=== PATIENT | male | born 2000 | race African-American/Black ===

== ENCOUNTER 2020-09-06 19:37 | Emergency (ER) | payer SELFPAY ==
[~2020-09-06] VITALS: Ht 172.7 cm; Wt 80.0 kg
[2020-09-06 20:49] LABS: CLARITY URINE CLEAR (CLEAR); COLOR URINE YELLOW (YELLOW); KETONES URINE 2+ (NEGATIVE); LEUKOCYTE ESTERASE URINE TRACE (NEGATIVE); NITRITE URINE NEGATIVE (NEGATIVE); OCCULT BLOOD URINE NEGATIVE (NEGATIVE); PH URINE 8.5 (4.5-8.0); PROTEIN URINE TRACE (NEGATIVE); SPECIFIC GRAVITY URINE 1.028 (1.005-1.030)
[2020-09-06 20:59] LABS: *AMPHETAMINES SCREEN URINE NEGATIVE (NEGATIVE); *BARBITURATES SCREEN URINE NEGATIVE (NEGATIVE); *BENZODIAZEPINES SCREEN URINE NEGATIVE (NEGATIVE)
[2020-09-06 21:00] LABS: *COCAINE SCREEN URINE NEGATIVE (NEGATIVE); CANNABINOID URINE SCREEN PRESUMTIVE POSITIVE (NEGATIVE); METHADONE URINE SCREEN NEGATIVE (NEGATIVE); OPIATES URINE SCREEN PRESUMTIVE POSITIVE (NEGATIVE); PHENCYCLIDINE URINE SCREEN NEGATIVE (NEGATIVE)
[2020-09-06 21:03] LABS: HEMATOCRIT. 47.1 % (42.0-52.0); HEMOGLOBIN. 15.9 g/dL (14.0-18.0); MEAN CORPUSCULAR HEMOGLOBIN 29.7 pg (28.0-32.0); MEAN CORPUSCULAR VOLUME 87.6 fL (80.0-94.0); MEAN PLATELET VOLUME 8.9 fl (7.4-10.4); PLATELET 240 x1000/uL (130-400); RED BLOOD CELL COUNT 5.37 mill/uL (4.7-6.1); RED CELL DISTRIBUTION WIDTH 13.9 % (11.6-14.6)
[2020-09-06 21:09] LABS: CHLORIDE 106 mEq/L (98-107)
[2020-09-06 21:12] LABS: ETHANOL BLOOD < 10 mg/dL
[2020-09-06] MEDS ORDERED: ONDANSETRON HCL 4MG/2ML INJ IV STA (21:14)
[2020-09-06] MEDS ORDERED: SODIUM CHLORIDE 0.9% 1,000 ML IV ONE (21:15)
[2020-09-06 21:18] LABS: CREATINE KINASE 251 IU/L (39-308)
[2020-09-06 21:47] LABS: PLATELET ESTIMATE NORMAL
[2020-09-06 23:09] VITALS: BP 125/69
== END 2020-09-06 23:10 | disposition home or self-care (01) ==
LOC: ER 19:37
DX: T67.5XXA Heat exhaustion, unspecified, initial encounter (principal); X30.XXXA Exposure to excessive natural heat, initial encounter; E86.0 Dehydration; Y93.67 Activity, basketball; T40.7X1A Poisoning by cannabis (derivatives), accidental (unintentional), initial encounter; R53.1 Weakness; Y92.89 Other specified places as the place of occurrence of the external cause
CPT/HCPCS: 36415; 80053; 80305; 80320; 81003; 82550; 85025; 93005; 96361; 96374; 99284; J2405; J7030; Z7610; G0480